=== PATIENT | male | born 1940 | race Caucasian/White ===

== ENCOUNTER 2024-07-12 12:42 | Emergency (ER) | payer OTHER, SELFPAY ==
[2024-07-12 12:45] VITALS: BP 143/62
--- NOTE | 2024-07-12 15:03 | ED.SKININJ ---
HPI-Injury
General
Chief Complaint: Skin Problem
Source: patient
Exam Limitations: none
Time Seen by Provider: 07/12/24 14:17
History of Present Illness-Injury
Initial Injury comments:
83-year-old otherwise healthy male presents complaining of enlarging cyst on the right buttock that started 1 week ago and is getting worse. He notes drainage. He denies chills or sweats. No measurable fever. No vomiting. No prior issues
similar to this. No other complaints
Past History
Past History
ED Past Medical History: Cancer, HTN, Hypercholesterolemia and Other (ETOH abuse)
ED Past Surgical History: Cholecystectomy and Urological (prostatectomy)
Patient has exhibited threatening behavior?: No
Social History
Tobacco: Non-smoker
Alcohol: None
Drug: None
Personal:
Living: with family
Employment: Retired
Phy Exam
Physical Exam
Physical Exam:
General: Well-appearing male no acute respiratory distress skin: Erythema fluctuance and induration noted to the medial aspect of the right buttock. Total area of induration is about 8 cm.
Central area of fluctuance is about 2 cm. There is some peeling skin noted in the center. Mild oozing from the wound which is purulent and sanguinous.
Extremities: No cyanosis
Course
Vital Signs
Initial and Last Documented VS:
Initial Vital Signs
Temp Pulse Resp Pulse Ox
98.1 F 114 19 96
07/12/24 12:43 07/12/24 12:43 07/12/24 12:43 07/12/24 12:43
Last Documented Vital Signs
Temp Pulse Resp BP Pulse Ox
98.1 F 114 19 143/62 96
07/12/24 12:43 07/12/24 12:43 07/12/24 12:43 07/12/24 12:45 07/12/24 12:43
MDM/Problems Addressed
Differential Diagnosis Includes:
Erythema swelling and induration noted to the right buttock. Question abscess versus cellulitis versus both. Patient is nontoxic afebrile not a diabetic.
The area was cleansed with saline anesthetized with 1% lidocaine with epinephrine and incised and drained. A moderate amount of purulent material was received from the central area of fluctuance. There is a significant amount of remaining
induration surrounding this. I suspect there is residual cellulitis. Overall he is. Will start on antibiotics. Return precautions were given. No indication for admission at this time
*Critical Care Note
Total Time (30-74mins, 75-104mins- exclusive of procedures): Not Applicable
ED Attending Note
-
Portions of this chart may have been created with voice recognition software.� Occasional wrong word or��sound alike� substitutions may have occurred due to the inherent limitations of voice recognition software.
Discharge Plan
Departure
Patient Disposition: Home (Routine Discharge)
Date of Disposition: 07/12/24
Time of Disposition: 15:07
Patient with high blood pressure during this ER visit?: No
Discharge Problem:
Abscess, Cellulitis
Instructions: Cellulitis (Skin Infection), Adult (DC), Skin Abscess
Prescriptions:
New
clindamycin HCl 300 mg capsule
300 mg PO TID Qty: 21 0RF
No Action
zolpidem [Ambien CR] 12.5 MG tablet,ext release multiphase
12.5 mg PO HS
Patient Comments:
06/02/18 per patient he switches back and forth between ambien and sonata or if he takes one at bedtime and wakes up in the middle of the night he takes the other
lisinopril 20 MG tablet
20 mg PO DAILY
Patient Comments:
06/02/18 per patient this medication was being adjusted it started at 20mg was increased to 40mg and now thinks it was decreased back down to 20mg. 20mg dose last filled in november 2017 for 90 day supply
aspirin 325 MG tablet
325 mg PO DAILY
cyanocobalamin (vitamin B-12) 1,000 MCG tablet
1,000 mcg PO DAILY
gabapentin enacarbil [Horizant] 300 MG tablet extended release
300 mg PO QPM
amlodipine [Norvasc] 2.5 MG tablet
2.5 mg PO DAILY
lorazepam 1 MG tablet
1 mg PO HS
amoxicillin 500 mg capsule
500 mg PO TID Qty: 21 0RF
Referrals:
UNKNOWN - PT DOES,NOT KNOW [Family Provider] -
Activity Restrictions/Additional Instructions:
Fill and take your antibiotics as prescribed. Soak area in warm water times a day. Please return here for increasing pain fever vomiting or other concerning findings. Follow-up with family doctor otherwise.
Interventions
Interventions:
*Risk Screen - Suicide Last Done: 07/12/24 12:45
*General Assessment Last Done: 07/12/24 15:00
*Neglect/Abuse Screening Last Done: 07/12/24 12:45
ED- Fall Risk Assessment Last Done: 07/12/24 15:00
*ED COVID-19 Vaccine History Last Done: 07/12/24 15:00
ED-Skin Assessment Last Done: 07/12/24 15:00
Discharge Date and Time
Print Language: DANISH
== END 2024-07-12 15:23 | disposition home or self-care (01) ==
LOC: EMR 12:42
PROVIDERS: EMERGENCY PHYSICIAN Student in an Organized Health Care Education/Training Program
DX: L02.31 Cutaneous abscess of buttock (principal); L03.317 Cellulitis of buttock; I10 Essential (primary) hypertension; E78.00 Pure hypercholesterolemia, unspecified; F10.10 Alcohol abuse, uncomplicated; Z90.49 Acquired absence of other specified parts of digestive tract; Z90.79 Acquired absence of other genital organ(s)
CPT/HCPCS: 99282; 10060